=== PATIENT | female | born 1930 | race Caucasian/White ===

== ENCOUNTER 2019-08-28 02:03 | Emergency (ER) | payer MEDICARE ==
--- NOTE | 2019-08-28 08:44 | CT ---
PRELIMINARY REPORT/[facility]/EMERGENCY AFTER HOURS PROCEDURE: PROCEDURE INFORMATION: Exam: CT Cervical Spine Without Contrast Exam date and time: 08/28/2019 2:27 AM Clinical history: 88 years old, female; Injury or trauma; Fall; Initial encounter; Blunt trauma; Inju ry date: 08/28/19 TECHNIQUE: Imaging protocol: Computed tomography images of the cervical spine without contrast. Radiation optimization: All CT scans at this facility use at least one of these dose optimization stefania hniques: automated exposure control; mA and/or kV adjustment per patient size (includes targeted exam s where dose is matched to clinical indication); or iterative reconstruction. COMPARISON: No relevant prior studies available. FINDINGS: Vertebrae: Degenerative change. No fracture. Discs/Spinal canal/Neural foramina: No spinal stenosis. No neural foraminal narrowing. Soft tissues: Unremarkable. Lungs: Lung apices are normal. IMPRESSION: No fracture. Thank you for allowing us to participate in the care of your patient. Dictated and Authenticated by: Al Humphrey MD 08/28/2019 2:48 AM Central Time ([place] & [place]) FINAL REPORT CT OF THE CERVICAL SPINE: Date: 08/28/[address] of the cervical spine was performed following trauma. Axial slices were acquired, followed by coronal and sagittal reconstructions. FINDINGS: There are diffuse degenerative changes throughout the cervical spine, but no fracture was appreciated . Anterior subluxation of C4 on C5 is noted, most likely due to degenerative change. Disc space narro wing is present at the C4-C5 level as well. The soft tissues show no thickening of concern. Findings by level follow: C1-C2: No acute findings. The anterior arch of C1 has partially eroded into the anterior aspect of the dens over time. The dens is intact. C2-C3: No acute findings. C3-C4: Moderate bilateral foraminal narrowing. Severe facet arthritis, especially on the left. C4-C5: Mild to moderate bilateral foraminal narrowing and severe facet arthritis. C5-C6: No acute findings. Severe facet arthritis. C6-C7: No acute findings. C7-T1: No acute findings. T1-T2: No acute findings. T2-T3: No acute findings. The lung apices show no pneumothorax. The aorta and its branches are very ectatic, especially the bra chiocephalic trunk. This pushes the trachea towards the right. IMPRESSION: Severe degenerative changes. Anterior subluxation of C4 on C5 due to degenerative change. No acute tr aumatic findings. Report in agreement with preliminary reading by Ab[facility]. POS: HOME
--- NOTE | 2019-08-28 08:45 | CT ---
PRELIMINARY REPORT/[facility]/EMERGENCY AFTER HOURS PROCEDURE: PROCEDURE INFORMATION: Exam: CT Head Without Contrast Exam date and time: 08/28/2019 2:25 AM Clinical history: 88 years old, female; Injury or trauma; Initial encounter; Blunt trauma (contusions or hematomas); Injury date: 08/28/19; Injury details: Fall out of bed at [facility] //knot to back of head TECHNIQUE: Imaging protocol: Computed tomography of the head without contrast. COMPARISON: No relevant prior studies available. FINDINGS: Brain: Volume loss and chronic small vessel ischemic change. Multifocal encephalomalacia/gliosis. No brain edema. No intracranial hemorrhage. Ventricles: Normal. No ventriculomegaly. Bones/joints: Chronic postsurgical changes of the left skull. Sinuses: Fluid level in the sphenoid sinus may signify sinusitis. Mastoid air cells: Visualized mastoid air cells are well aerated. Soft tissues: Unremarkable. IMPRESSION: 1. No acute brain findings. 2. Fluid level in the sphenoid sinus may signify sinusitis. Thank you for allowing us to participate in the care of your patient. Dictated and Authenticated by: Al Humphrey MD 08/28/2019 2:45 AM Central Time ([place] & [place]) FINAL REPORT CT OF THE BRAIN WITHOUT CONTRAST: Date: 08/28/19 No prior films were available for comparison. FINDINGS: The ventricles are large, but show no shift. There is considerable atrophy present. An area of lucenc y is seen in the left inferior frontal lobe that is most likely due to an old stroke. No intracranial bleeding or extra-axial hematoma seen. There is a left frontotemporal craniotomy apparent from a kwabena or procedure. No skull fracture seen. There is an air fluid level in the right side of the sphenoid s inus. There is no evidence of basilar skull fracture. Thus, the possibility of sinusitis is raised. M astoid air cells are clear. IMPRESSION: 1. Diffuse severe atrophy with generalized enlargement of the ventricles. 2. Area of encephalomalacia in the left inferior frontal lobe near a prior craniotomy defect. 3. No acute intracranial findings. 4. Possible right sphenoid sinusitis. Report in agreement with preliminary reading by [facility]. POS: HOME
== END 2019-08-28 03:05 | disposition home or self-care (01) ==
LOC: BURERS 02:03
DX: S00.03XA Contusion of scalp, initial encounter (principal); F32.9 Major depressive disorder, single episode, unspecified; G30.9 Alzheimer's disease, unspecified; E03.9 Hypothyroidism, unspecified; D64.9 Anemia, unspecified; G47.00 Insomnia, unspecified; Z79.899 Other long term (current) drug therapy; W06.XXXA Fall from bed, initial encounter
CPT/HCPCS: 70450; 72125